=== PATIENT | male | born 1995 | race Caucasian/White ===

== ENCOUNTER 2018-01-07 19:45 | Emergency (ER) | payer MEDICAID, OTHER ==
[~2018-01-07] VITALS: Ht 177.8 cm; Wt 65.8 kg
[2018-01-07 21:05] VITALS: BP 132/87
== END 2018-01-07 22:13 | disposition left against medical advice (07) ==
LOC: ER 19:51
DX: M67.442 Ganglion, left hand (principal); Z53.29 Procedure and treatment not carried out because of patient's decision for other reasons

== ENCOUNTER 2019-03-24 11:18 | Emergency (ER) | payer OTHER ==
[~2019-03-24] VITALS: Ht 177.8 cm; Wt 63.5 kg
[2019-03-24 11:30] VITALS: BP 107/50
== END 2019-03-24 13:33 | disposition home or self-care (01) ==
LOC: ER 11:23
DX: J20.9 Acute bronchitis, unspecified (principal)
CPT/HCPCS: 71046

== ENCOUNTER → 2019-08-22 | Emergency (ER) | payer OTHER ==
[~2019-08-22] VITALS: Ht 170.2 cm; Wt 68.0 kg
[~2019-08-22] MED LIST: MORPHINE SULFATE 4 MG/ML SYR/VIAL IV ONE; ONDANSETRON HCL 4 MG/2 ML VIAL IV ONE; SODIUM CHLORIDE 0.9% 2,000 ML IV ONE
[2019-08-22 00:42] LABS: Basophils # (auto) 0.1 10 ^3/uL (0-0.2); Basophils % (auto) 0.6 % (0.0-2.0); Eosinophils # (auto) 0.3 10 ^3/uL (0-0.8); Eosinophils % (auto) 2.4 % (0.0-7.0); Hematocrit 45.6 % (41.0-53.0); Hemoglobin 15.2 g/dL (13.5-17.5); Lymphocytes # (auto) 3.1 10 ^3/uL (0.4-5.4); Lymphocytes % (auto) 23.6 % (10.0-50.0); Mean Corpuscular Hgb Conc. 33.4 g/dL (32.0-36.0); Mean Corpuscular Volume 89.9 fL (80.0-100.0); Monocytes % (auto) 7.6 % (0.0-12.0); Neutrophils # (auto) 8.7 10 ^3/uL (1.6-8.6); Neutrophils % (auto) 65.8 % (37.0-80.0); Nucleated Red Blood Cells % 0.1 %; Platelet Count (auto) 260 10^3/uL (140-450); Red Blood Cells 5.07 10^6/uL (4.5-5.90); Red Cell Distribution Width 13.6 % (11.8-14.3); White Blood Cell 13.3 10^3/uL (4.4-10.8)
[2019-08-22 01:03] LABS: Albumin 4.1 g/dL (3.4-5.0); BUN/Creatinine Ratio 18.6; Calcium 8.7 mg/dL (8.5-10.1); Potassium 3.3 mmol/L (3.5-5.1)
[2019-08-22 01:06] LABS: Bilirubin, Total 0.5 mg/dL (0.2-1.0); Total Protein 7.1 g/dL (6.4-8.2)
[2019-08-22 02:07] LABS: Urine Bacteria FEW /hpf (None Seen); Urine Blood 2+ /uL (Negative); Urine Mucus FEW (None Seen); Urine Specific Gravity 1.024 (1.001-1.035); Urine WBC 8 /hpf (0 - 3)
[2019-08-22 02:27] LABS: Alcohol, Urine < 3.0 mg/dL (0-5); Amphetamine Screen, Urine NEGATIVE (NEGATIVE); Barbiturate Scree,Urine NEGATIVE (NEGATIVE); Benzodiazephine Screen, Urine NEGATIVE (NEGATIVE); Cannabinoid Screen, Urine POSITIVE (NEGATIVE); Cocaine Screen, Urine POSITIVE (NEGATIVE); Opiate Scree,Urine POSITIVE (NEGATIVE); Phencyclidine Screen, Urine NEGATIVE (NEGATIVE)
[2019-08-22 02:47] VITALS: BP 106/55
--- NOTE | 2019-08-22 20:04 | NUR ---
PRESCRIPTION ISSUE PATIENT WENT TO FILL HIS PRESCRIPTION AND STUCK THE SCRIPT IN THE BULLET SYSTEM OUTSIDE OF THE BULLET SO THE SCRIPT IS STUCK IN THEIR SYSTEM HE IS ASKING US TO CALL IN THE PRESCRIPTION. I CALLED [facility] AT [phone] AND SPOKE TO BERNARDA WHO STATES THAT THEY WILL NOT TAKE A PRESCRIPTION FOR [employer] OVER THE PHONE WHICH I ALREADY EXPLAINED TO THE PATIENT. THEY ARE WORKING ON THEIR END TO RETRIEVE THE PRESCRIPTION
== END | disposition home or self-care (01) ==
LOC: EDUNIT# 08-21 23:59 → EDBD 00:09 → ER 00:14
DX: N20.0 Calculus of kidney (principal); R11.2 Nausea with vomiting, unspecified
CPT/HCPCS: 36415; 74176; 80053; 80307; 81001; 83605; 85025; 96361; 96374; 96375; 99284; J2270; J2405; J7030

== ENCOUNTER 2019-12-21 11:11 | Emergency (ER) | payer OTHER ==
[~2019-12-21] VITALS: Ht 177.8 cm; Wt 63.5 kg
[2019-12-21 11:52] VITALS: BP 116/68
== END 2019-12-21 13:11 | disposition home or self-care (01) ==
LOC: ER 11:11
DX: J20.9 Acute bronchitis, unspecified (principal); R07.89 Other chest pain; Z20.828 Contact with and (suspected) exposure to other viral communicable diseases
CPT/HCPCS: 36415; 71045; 87426